=== PATIENT | female | born 1935 | race Caucasian/White ===

== ENCOUNTER 2019-03-04 18:54 | Emergency (ER) | payer MEDICARE ==
--- NOTE | 2019-03-04 19:40 | RAD ---
4 views left knee. HISTORY: Trauma AP, lateral and both oblique views left knee obtained. The patient has large medial left knee varicosities. There is a moderately displaced comminuted burst fracture involving the patella. IMPRESSION: Patellar fracture.
== END 2019-03-04 20:08 | disposition home or self-care (01) ==
LOC: SCSER 18:54
DX: S82.042A Displaced comminuted fracture of left patella, initial encounter for closed fracture (principal); W01.0XXA Fall on same level from slipping, tripping and stumbling without subsequent striking against object, initial encounter